=== PATIENT | female | born 1975 | race Caucasian/White ===

== ENCOUNTER 2022-03-06 19:12 | Emergency (ER) | payer MEDICAID ==
[~2022-03-06] VITALS: Ht 154.9 cm; Wt 74.8 kg
[2022-03-06 19:28] VITALS: BP 144/89
[2022-03-06 19:30] VITALS: BP 144/89
--- NOTE | 2022-03-06 21:53 | NUR ---
PT AMBULATED TO BED 7
--- NOTE | 2022-03-06 21:55 | NUR ---
MD HART AT BEDSIDE
[2022-03-06] MEDS ORDERED: KETOROLAC 60 MG/2 ML VIAL IM ONE (22:00)
[2022-03-06] MEDS ORDERED: MECLIZINE 25 MG TAB PO ONE (22:05)
--- NOTE | 2022-03-06 22:10 | NUR ---
46/F BIB SELF C/O NECK PAIN UPON MOVEMENT X 3DAYS. SHARP PAIN 7/10 AT THIS TIME. PATIENT REPORTS DIZZINESS AT THIS TIME. PATIENT STATED THAT SHE TOOK TYLENOL 1000MG WITH SOME RELIEF X 7HRS AGO. DENIES N/V/SOB/CP AT THIS TIME. NKA PMHX DENIES MEDS DENIES
--- NOTE | 2022-03-06 22:26 | NUR ---
MD HART AT BEDSIDE
[2022-03-06] MEDS ORDERED: ACET-8386 PO (23:24)
[2022-03-06] MEDS ORDERED: IBUP-2213 PO (23:24)
[2022-03-06] MEDS ORDERED: MECL-303 PO (23:24)
--- NOTE | 2022-03-06 23:30 | NUR ---
PATIENT STABLE, SLEEPING AT THIS TIME. ALL NEEDS MET
--- NOTE | 2022-03-06 23:59 | NUR ---
Patient discharged with v/s stable. Written and verbal after care instructions given on Cervical sprian/Benign Positional Vertigo and explained. Patient alert, oriented and verbalized understanding of instructions. Ambulatory with steady gait. All questions addressed prior to discharge. ID band removed. Patient advised to follow up with PMD. Rx of Hydrocodone/Acetaminophen, Ibuprofen, and Meclizine given.
== END 2022-03-06 23:59 | disposition home or self-care (01) ==
LOC: MED 19:12
DX: S13.4XXA Sprain of ligaments of cervical spine, initial encounter (principal); H81.399 Other peripheral vertigo, unspecified ear; Z98.890 Other specified postprocedural states; X58.XXXA Exposure to other specified factors, initial encounter; Y92.89 Other specified places as the place of occurrence of the external cause; Y93.89 Activity, other specified; Y99.8 Other external cause status
CPT/HCPCS: 96372; 99283; J1885; J8597